=== PATIENT | female | born 1990 | race Caucasian/White ===

== ENCOUNTER 2016-09-09 18:59 | Emergency (ER) | payer OTHER ==
[~2016-09-09] VITALS: Ht 167.6 cm; Wt 63.5 kg
--- NOTE | 2016-09-09 19:53 | ED GI/GU/ABDOMINAL COMPLAINT ---
History of Present Illness General Chief Complaint: Female Urogenital Problems Stated Complaint: HEAVY VAGINAL BLEEDING, 9 WEEKS PREG Source: patient, old records Exam Limitations: no limitations Vital Signs & Intake/Output Vital Signs & Intake/Output Vital Signs Date Time Temp Pulse Resp B/P Pulse O2 O2 Flow FiO2 Ox Delivery Rate 09/09 2158 98.7 73 18 111/62 98 Room Air 09/09 1902 99.0 96 16 131/75 98 Room Air Allergies Coded Allergies: No Known Allergies (09/09/16) Reconcile Medications Vit No.130/Iron/FA ( Tablet) 27 MG IRON-800 MCG TABLET 1 TAB PO DAILY (Reported) Triage Note: PT STATES SHE IS 9 WEEKS AND SHE IS HAVING BLEEDING WITH CLOTS. PT STATES SHE WENT TO HER OBGYN AND HAD US ON TUESDAY BECAUSE SHE WAS HAVING SOME BLEEING AND THEY SAID EVERYTHING WAS OK. PT'S OB IS DR. POST PT STATES SHE WAS UNABLE TO GET IN TOUCH WITH HER. Triage Nurses Notes Reviewed? yes ? Y Is pt currently ? No Onset: Abrupt Duration: hour(s): (1), constant Timing: recent history Severity Numbers: 1 Location: DENIES PAIN Radiation: no radiation Activities at Onset: none Prior Abdominal Problems: none No Modifying Factors: none Associated Symptoms: DENIES HPI: 9 week with confirmed iup by us, female presents complaining of sudden onset vaginal bleeding with passage of clots and 6:30 this evening. The patient states that 2 days ago she had slight vaginal spotting for which she went and saw her preparatory technician and had an ultrasound performed at that time and was told everything was okay. The patient denies any associated abdominal pain fever chills no urinary complaints. No dizziness S chest pain shortness of breath. No history of miscarriage in the past she denies any complications during this . No abnormal vaginal discharge. She states she has not needed to use a pad yet however. (BAKARI ALVAREZ) Past History Travel History Traveled to [place] past 21 day No Medical History Any Pertinent Medical History? none Surgical History Surgical History: none Psychosocial History What is your primary language Ecuadorean Tobacco Use: Never used ETOH Use: denies use Illicit Drug Use: denies illicit drug use Family History Hx Contributory? No (BAKARI ALVAREZ) Review of Systems Review of Systems Constitutional: Reports: see HPI. All Other Systems: Reviewed and Negative Comments Review of systems: See HPI, All other systems negative. Constitutional, no chills no fever, no malaise HEENT: No visual changes no sore throat no congestion, no ear pain Cardiovascular: No chest pain , no palpitation Skin, no jaundice no rashes, no change in skin Respiratory: No dyspnea no cough no sputum GI: No nausea no vomiting, no diarrhea, no bloating/constipation : No dysuria No hematuria, no frequency, no discharge Muscle skeletal: No joint pain, no joint swelling, no back pain Neurologic: No numbness no headache Psych: No stress n Heme/endocrine: No bruising no bleeding Immunology: No lymphadenopathy (BAKARI ALVAREZ) Physical Exam Physical Exam General Appearance: well developed/nourished, no apparent distress, alert, awake , comfortable Gastrointestinal: normal bowel sounds, soft, non-tender Comments: Well-developed well-nourished person in no acute distress HEENT: Normal EENT exam; PERRL, EOMI,HEAD is atraumatic. moist mucous membranes. Neck: Supple, no lymphadenopathy, normal range of motion Back: Nontender, no CVA tenderness. Full range of motion Cardiovascular: Regular rate and rhythms no murmurs rubs Respiratory: No respiratory distress. Patient speaking in full complete sentences. Breath sounds clear to auscultation bilaterally: NO W/R/R Abdomen: Soft, nontender nondistended, no appreciable organomegaly. Normal bowel sounds. No rebound/guarding Extremity: No edema, full range of motion of extremities Neuro: Alert oriented x3, motor sensory normal, There were no obvious focal neurologic abnormalities. Skin: No appreciable rash on exposed skin, skin is warm and dry. Psych: Mood and affect is normal, memory and judgment is normal. Core Measures ACS in differential dx? No Severe Sepsis Present: No Septic Shock Present: No (BAKARI AVLAREZ) Progress Differential Diagnosis: inflamm bowel dis, threatened AB, UTI/pyelo Plan of Care: Orders Procedure Date/time Status HUMAN BETA HCG TITRE 09/09 1900 Complete COMPREHENSIVE METABOLIC PANEL 09/09 1900 Complete CBC WITHOUT DIFFERENTIAL 09/09 1900 Complete RHOGAM WORK-UP 09/09 1900 Complete Laboratory Tests 09/09/16 2000: Urine Color Cancelled, Urine Clarity Cancelled, Urine pH Cancelled, Ur Specific [place] Cancelled, Urine Protein Cancelled, Urine Ketones Cancelled, Urine Nitrite Cancelled, Urine Bilirubin Cancelled, Urine Urobilinogen Cancelled, Ur Leukocyte Esterase Cancelled, Ur Microscopic Cancelled, Urine Hemoglobin Cancelled, Urine Glucose Cancelled 09/09/161953: Anion Gap 15, Estimated GFR > 60, BUN/Creatinine Ratio 28.3 H, Glucose 84, Calcium 9.4, Total Bilirubin 0.3, AST 17, ALT 24, Alkaline Phosphatase 59, Total Protein 6.7, Albumin 4.1, Globulin 2.6, Albumin/Globulin Ratio 1.6, Beta HCG, Quant 22808.0, CBC w Diff NO MAN DIFF REQ, RBC 3.50 L, MCV 92.8, MCH 32.5 H, RDW 13.4, MPV 6.7 L, Gran % 62.3, Lymphocytes % 27.8, Monocytes % 8.2, Eosinophils % 1.1, Basophils % 0.6, Absolute Granulocytes 3.9, Absolute Lymphocytes 1.7, Absolute Monocytes 0.5, Absolute Eosinophils 0.1, Absolute Basophils 0, PUBS MCHC 35.0 Patient denies any symptoms at this time labs ordered ultrasound ordered 09/09/2016 9:30:54 PM discussed with the patient her ultrasound results calls placed her OB doctor Sincere patient denies pain 09/09/2016 9:56:[address] Paula regarding the patient's ultrasound patient has remained on one pad of bleeding. He advised strict bed rest and will reevaluate the patient in the office by Dr. Post tomorrow. Discussed the patient plan of care she again denies any pain vitals are stable she clinically appears well otherwise they understand the plan of care he'll return anytime sooner with any concerns including worsening bleeding she developed pain fever chills dizziness or lightheadedness. (JENNY LOVETT,BAKARI) Diagnostic Imaging: Viewed by Me: Ultrasound. Discussed w/RAD: Ultrasound. Radiology Impression: PATIENT: NEDRA RIOJAS PRESENT AGE: 26 PATIENT ACCOUNT NO: [id number] : 88 LOCATION: [facility] ORDERING PHYSICIAN: BAKARI LOVETT SERVICE DATE: 09/09/16 EXAM TYPE: US - US TRANSVAG EXAMINATION: ULTRASOUND PELVIC CLINICAL INFORMATION: . Heavy vaginal bleeding. COMPARISON: None. TECHNIQUE: Transvaginal: Used to better visualize pelvic structures Transabdominal: Not adequate for visualization. Spectral Doppler and color Doppler exam was utilized. LMP: 2015. Gestational age 9 weeks 1 day. JON 04/13/2017. FINDINGS: UTERUS: Single intrauterine gestation. motion and cardiac activity. heart rate 170 bpm. [place]-rump length 2.9 cm. Gestational age by ultrasound 19 weeks 5 days. JON 04/09/2017. There is complex fluid in the vaginal canal. There is a large subchorionic bleed adjacent to the gestational sac. On Doppler vascular flow is seen in this collection. ADNEXA: Neither the right or the left ovary is visualized. Cul-de-sac: No Fluid IMPRESSION: 1. Intrauterine gestation. Estimated gestational age by ultrasound 19 weeks 5 days, JON 04/09/2017. 2. Hemorrhagic fluid in the vaginal vault. Large subchorionic bleed adjacent to the gestational sac. Doppler demonstrates vascular flow in this collection. This critical result was discussed with Dr. Rodríguez on 09/09/2016, 9:20 PM and it was ascertained that the content and urgency of the report was understood at the time of direct communication. DICTATED BY: KAMLESH PASTOR MD DATE/TIME DICTATED:2111 [address] MAKER:PENNIE DATE/TIME TRANSCRIBED:09/09/162111 CONFIDENTIAL, DO NOT COPY WITHOUT APPROPRIATE AUTHORIZATION. <Electronically signed in Other Vendor System> SIGNED BY: KAMLESH PASTOR MD 09/09/162123 Initial ED EKG: none (BAKARI ALVAREZ) Departure Departure Time of Disposition: 2149 Disposition: HOME OR SELF CARE Condition: Stable Clinical Impression Primary Impression: Threatened Secondary Impressions: Subchorionic bleed Referrals: PATIENT HAS NO PRIMARY CARE DR (PCP/Family) Additional Instructions: Follow-up with Dr. Post's office tomorrow for repeat ultrasound and evaluation. Strict bedrest Tylenol if needed. Return immediately if you develop worsening bleeding, dizziness lightheadedness or any other concerns Departure Forms: Customer Survey General Discharge Information (BAKARI ALVAREZ) PA/CANDY PACKER Co-Sign Statement Statement: ED Attending supervision documentation- x I saw and evaluated the patient. I have also reviewed all the pertinent lab results and diagnostic results. I agree with the findings and the plan of care as documented in the PA's/CANDY PACKER's documentation. [] I have reviewed the ED Record and agree with the PA's/CANDY PACKER's documentation. [] Additions or exceptions (if any) to the PAs/CANDY PACKER's note and plan are summarized below: [] (TOM WELLS,DAKSHA)
[2016-09-09 20:01] LABS: ABSOLUTE BASOPHIL COUNT 0 /CUMM (0.0-0.2); ABSOLUTE EOSINOPHIL COUNT 0.1 /CUMM (0.0-0.7); ABSOLUTE GRANULOCYTE CT 3.9 /CUMM (1.4-6.5); ABSOLUTE LYMPH COUNT 1.7 /CUMM (1.2-3.4); ABSOLUTE MONOCYTE COUNT 0.5 /CUMM (0.10-0.60); BASOPHIL % 0.6 % (0.0-2.0); EOSINOPHIL % 1.1 % (0-5); GRANULOCYTE % 62.3 % (42.2-75.2); HEMATOCRIT 32.5 % (37-47); MEAN CORPUSCULAR HGB 32.5 PG (27.0-31.0); MEAN CORPUSCULAR VOLUME 92.8 FL (81.0-99.0); MEAN PLATELET VOLUME 6.7 FL (7.4-10.4); PLATELET COUNT 235 /CUMM (130-400); RBC DISTRIBUTION WIDTH 13.4 % (11.5-14.5); WHITE BLOOD CELL COUNT 6.2 /CUMM (4.8-10.8)
[2016-09-09] MEDS ORDERED: PRENATAL TABLE1 EAC2 PO (20:58)
--- NOTE | 2016-09-09 21:24 | ULTRASOUND REPORT ---
EXAMINATION: ULTRASOUND PELVIC CLINICAL INFORMATION: . Heavy vaginal bleeding. COMPARISON: None. TECHNIQUE: Transvaginal: Used to better visualize pelvic structures Transabdominal: Not adequate for visualization. Spectral Doppler and color Doppler exam was utilized. LMP: 07/07/2016. Gestational age 9 weeks 1 day. JON 04/13/2017. FINDINGS: UTERUS: Single intrauterine gestation. motion and cardiac activity. heart rate 170 bpm. [place]-rump length 2.9 cm. Gestational age by ultrasound 19 weeks 5 days. JON 04/09/2017. There is complex fluid in the vaginal canal. There is a large subchorionic bleed adjacent to the gestational sac. On Doppler vascular flow is seen in this collection. ADNEXA: Neither the right or the left ovary is visualized. Cul-de-sac: No Fluid IMPRESSION: 1. Intrauterine gestation. Estimated gestational age by ultrasound 19 weeks 5 days, JON 04/09/2017. 2. Hemorrhagic fluid in the vaginal vault. Large subchorionic bleed adjacent to the gestational sac. Doppler demonstrates vascular flow in this collection. This critical result was discussed with Dr. Rodríguez on 09/09/2016, 9:20 PM and it was ascertained that the content and urgency of the report was understood at the time of direct communication.
[2016-09-09 21:59] VITALS: BP 111/62
[2017-02-09] MEDS ORDERED: ZANTAC150 M1 PO (16:08)
[2017-02-09] MEDS ORDERED: ZOFRAN ODT4 M1 PO (18:53)
== END 2016-09-09 22:01 ==
LOC: ERH 18:59
PROVIDERS: Physician Assistant Medical
DX: O20.0 Threatened abortion (principal)
CPT/HCPCS: 76817